=== PATIENT | male | born 1995 | race African-American/Black ===

== ENCOUNTER 2020-12-25 12:58 | Emergency (ER) | payer MEDICAID ==
[~2020-12-25] VITALS: Ht 180.3 cm; Wt 87.0 kg
[2020-12-25 13:00] VITALS: BP 117/59
== END 2020-12-25 13:33 | disposition home or self-care (01) ==
LOC: ER 12:58
DX: Z48.02 Encounter for removal of sutures (principal)
CPT/HCPCS: 99281

== ENCOUNTER 2024-03-23 23:53 | Emergency (ER) | payer MEDICAID, OTHER ==
[~2024-03-23] VITALS: Ht 177.8 cm; Wt 82.0 kg
[2024-03-24 00:51] VITALS: TEMP 98.4; O2SAT 100
[2024-03-24] MEDS ORDERED: IBUP-2029 MT (01:11)
[2024-03-24 01:54] VITALS: BP 132/74; PULSE 90; RESP 16
[2024-03-24] MEDS: IBUPROFEN 600MG TABLET PO ONE (01:54)
== END 2024-03-24 01:55 | disposition home or self-care (01) ==
LOC: ER 23:53
DX: S93.401A Sprain of unspecified ligament of right ankle, initial encounter (principal); Y93.67 Activity, basketball; Y92.89 Other specified places as the place of occurrence of the external cause; Y99.8 Other external cause status
CPT/HCPCS: 73610; 99283

== ENCOUNTER 2024-03-24 03:38 | Emergency (ER) | payer OTHER ==
[~2024-03-24] VITALS: Ht 177.8 cm; Wt 82.0 kg
[~2024-03-24 03:38] MED LIST: IBUP-2029 MT
[2024-03-24 03:54] VITALS: BP 127/68; PULSE 83; RESP 16; TEMP 98.2; O2SAT 100
[2024-03-24] MEDS ORDERED: ACETAMINOPHEN 325MG TABLET PO STA (05:06)
[2024-03-24 05:37] LABS: BASOPHILS % 0.4 % (0.0-2.0); EOSINOPHILS % 3.9 % (0.0-5.0); HEMATOCRIT. 42.9 % (42.0-52.0); HEMOGLOBIN. 14.4 g/dL (14.0-18.0); LYMPHOCYTES % 21.2 % (20.0-50.0); MEAN CORPUSCULAR HEMOGLOBIN 30.6 pg (28.0-32.0); MEAN CORPUSCULAR HGB CONC 33.5 g/dL (31.0-37.0); MEAN CORPUSCULAR VOLUME 91.4 fL (80.0-94.0); MEAN PLATELET VOLUME 8.8 fl (7.4-10.4); MONOCYTES % 7.5 % (2.0-8.0); PLATELET 216 x1000/uL (130-400); RED BLOOD CELL COUNT 4.69 mill/uL (4.7-6.1); RED CELL DISTRIBUTION WIDTH 14.7 % (11.6-14.6); WHITE BLOOD COUNT 10.6 x1000/uL (4.5-11.0)
[2024-03-24 05:43] LABS: CHLORIDE 107 mEq/L (98-107); SODIUM 141 mEq/L (136-145)
[2024-03-24 05:44] LABS: CARBON DIOXIDE 30 mEq/L (21-32)
[2024-03-24 05:45] LABS: CALCIUM 9.8 mg/dL (8.7-10.4)
[2024-03-24 05:49] LABS: CREATININE 0.9 mg/dL (0.6-1.3); GLUCOSE 83 mg/dL (70-105)
[2024-03-24 05:50] LABS: UREA NITROGEN BLOOD 11 mg/dL (9-23)
[2024-03-24 05:51] LABS: ACETAMINOPHEN < 2 ug/mL (10-30)
[2024-03-24 05:53] LABS: ETHANOL BLOOD < 10 mg/dL (<10)
== END 2024-03-24 09:20 | disposition left against medical advice (07) ==
LOC: ER 03:38
DX: R10.9 Unspecified abdominal pain (principal)
CPT/HCPCS: 36415; 80048; 80307; 80320; 80329; 85025; 99283; G0480

== ENCOUNTER 2024-07-01 19:41 | Emergency (ER) | payer MEDICAID ==
[~2024-07-01] VITALS: Ht 177.8 cm; Wt 84.0 kg
[2024-07-01 19:45] VITALS: O2SAT 98
[2024-07-01 19:47] VITALS: TEMP 98; O2SAT 100
[2024-07-01] MEDS ORDERED: IBUP-2029 MT (21:30)
[2024-07-01 21:45] VITALS: BP 126/72; PULSE 75; RESP 18
[2024-07-01] MEDS: KETOROLAC 30MG/ML VIAL IM STA (21:45)
[2024-07-01] MEDS: ACETAMINOPHEN WITH CODEINE 300/30MG TABLET PO STA (21:45)
== END 2024-07-01 22:40 | disposition home or self-care (01) ==
LOC: ER 19:41
DX: S43.004A Unspecified dislocation of right shoulder joint, initial encounter (principal); X58.XXXA Exposure to other specified factors, initial encounter; Y93.67 Activity, basketball; Y92.89 Other specified places as the place of occurrence of the external cause; Y99.8 Other external cause status
CPT/HCPCS: 73030; 96372; 99283; J1885; Z7610; A4565

== ENCOUNTER 2024-12-14 21:58 | Emergency (ER) | payer MEDICAID ==
[~2024-12-14] VITALS: Ht 175.3 cm; Wt 82.0 kg
[2024-12-14 22:19] VITALS: O2SAT 99
[2024-12-14 22:23] VITALS: BP 131/74; PULSE 79; RESP 18; TEMP 36.9; O2SAT 98
[2024-12-14] MEDS ORDERED: METOCLOPRAMIDE HCL 5MG TABLET PO ONE (23:15)
[2024-12-14] MEDS ORDERED: MAGNESIUM/ALUMINUM HYDROXIDE/SIMETHICONE 30ML UDC PO ONE (23:15)
[2024-12-14] MEDS ORDERED: IBUPROFEN 400MG TABLET PO ONE (23:15)
[2024-12-14] MEDS ORDERED: FAMO20TA8 MT (23:24)
== END 2024-12-14 23:53 | disposition home or self-care (01) ==
LOC: ER 21:58
DX: K21.9 Gastro-esophageal reflux disease without esophagitis (principal); Z79.899 Other long term (current) drug therapy
CPT/HCPCS: 99282; J8597

== ENCOUNTER 2025-02-13 05:46 | Emergency (ER) | payer MEDICAID, OTHER ==
[~2025-02-13] VITALS: Ht 177.8 cm; Wt 87.0 kg
[~2025-02-13 05:46] MED LIST changes: +FAMO20TA8 MT
[2025-02-13 06:09] VITALS: TEMP 36.7; O2SAT 100
[2025-02-13] MEDS: IBUPROFEN 800MG TABLET PO ONE (07:22)
[2025-02-13] MEDS ORDERED: IBUP-2028 PO (08:45)
[2025-02-13 08:50] VITALS: BP 134/79; PULSE 56; RESP 18; O2SAT 100
== END 2025-02-13 09:50 | disposition home or self-care (01) ==
LOC: ER 06:13
DX: S20.212A Contusion of left front wall of thorax, initial encounter (principal); Z79.899 Other long term (current) drug therapy; X58.XXXA Exposure to other specified factors, initial encounter; Y93.89 Activity, other specified; Y92.89 Other specified places as the place of occurrence of the external cause; Y99.8 Other external cause status
CPT/HCPCS: 71101; 99283

== ENCOUNTER 2025-05-10 06:08 | Emergency (ER) | payer MEDICAID, OTHER ==
[~2025-05-10] VITALS: Ht 185.4 cm; Wt 82.0 kg
[~2025-05-10 06:08] MED LIST changes: +IBUP-2028 PO
[2025-05-10 06:16] VITALS: TEMP 36.8; O2SAT 99
[2025-05-10 06:41] VITALS: BP 142/78; PULSE 79; RESP 14; O2SAT 99
== END 2025-05-10 06:54 | disposition left against medical advice (07) ==
LOC: ER 06:08
DX: R10.9 Unspecified abdominal pain (principal); Z53.21 Procedure and treatment not carried out due to patient leaving prior to being seen by health care provider
CPT/HCPCS: Z7610 ×2

== ENCOUNTER 2025-05-11 00:41 | Emergency (ER) | payer OTHER ==
[~2025-05-11] VITALS: Ht 177.8 cm; Wt 82.8 kg
[2025-05-11 00:44] VITALS: BP 158/71; TEMP 36.9; O2SAT 98
[2025-05-11 00:46] VITALS: PULSE 82; RESP 18; O2SAT 97
[2025-05-11 01:37] LABS: BASOPHILS % 0.6 % (0.0-2.0); EOSINOPHILS % 2.2 % (0.0-5.0); HEMATOCRIT. 43.1 % (42.0-52.0); HEMOGLOBIN. 14.7 g/dL (14.0-18.0); LYMPHOCYTES % 29.9 % (20.0-50.0); MEAN PLATELET VOLUME 9.9 fl (7.4-10.4); MONOCYTES % 9.4 % (2.0-8.0); NEUTROPHILS % 57.9 % (40.0-76.0); PLATELET 174 x1000/uL (130-400); RED BLOOD CELL COUNT 4.95 mill/uL (4.7-6.1); RED CELL DISTRIBUTION WIDTH 13.5 % (11.6-14.6)
[2025-05-11 01:51] LABS: CREATININE 0.9 mg/dL (0.6-1.3); UREA NITROGEN BLOOD 10 mg/dL (9-23)
[2025-05-11 01:52] LABS: TROPONIN I HIGH SENSITIVITY < 4 ng/L (3.0-53)
[2025-05-11 01:53] LABS: ASPARTATE AMINOTRANSFERASE 64 IU/L (<34); BILIRUBIN DIRECT 0.3 mg/dL (<=3.0); BILIRUBIN TOTAL 0.8 mg/dL (0.1-1.0); PROTEIN TOTAL 7.0 g/dL (6.0-8.3)
== END 2025-05-11 02:56 | disposition home or self-care (01) ==
LOC: ER 00:41
DX: R07.89 Other chest pain (principal); Z79.899 Other long term (current) drug therapy
CPT/HCPCS: 36415; 71045; 80048; 80076; 84484; 85025; 93005; 99285